=== PATIENT | male | born 1985 | race Caucasian/White ===

== ENCOUNTER 2023-05-07 09:34 | Emergency (ER) | payer OTHER, BC, SELFPAY ==
[2023-05-07 09:43] VITALS: BP 132/80; PULSE 123; RESP 16; O2SAT 97; BMI 22.5
--- NOTE | 2023-05-07 10:35 | ED.GENADULT ---
HPI - General Adult General Chief complaint: Unspecified Complaint, Adult Stated complaint: shakes/twitching or panic attack Time Seen by Provider: 05/07/23 09:52 History of Present Illness HPI narrative: This 38-year-old male comes in reporting brief jerks are spasms that have been happening over the past day or so. He also had some of these symptoms here in there over the past couple months. He did have a head injury and states that there was a subsequent surgery to straighten his nose to improve his breathing. It was since then that he has had these myoclonic jerks. He arrives with tachycardia and does seem to have lots of anxiety about his current circumstances. He is not taking any medications and denies using any street drugs or alcohol. He has not had any fevers. He does not have any history of seizures. Related Data Previous Rx's Medication Instructions Recorded escitalopram oxalate 10 mg tablet 10 mg PO DAILY #30 tabs 05/07/23 (Lexapro) lorazepam 0.5 mg tablet (Ativan) 0.5 mg PO BID PRN #10 tabs 05/07/23 methylprednisolone 4 mg tablets in See Rx Instructions PO .COMPLEX 05/07/23 a dose pack (Medrol (Sher)) #21 ea Allergies Allergy/AdvReac Type Severity Reaction Status Date / Time No Known Drug Allergies Allergy Verified 03/24/22 15:12 Review of Systems Status of ROS: Reports: 10 or more systems reviewed and unremarkable except as noted in History and below Narrative: Constitutional: No fevers, no weight gain or loss. Eyes: No discharge. No vision changes. HENT: No congestion, no sore throat, no ear pain. He reports a clicking sensation in his right TMJ. Cardiovascular: No chest pain, no palpitations. Respiratory: No shortness of breath, no wheezes, no cough. Gastrointestinal: No abdominal pain, no vomiting, no diarrhea. Genitourinary: No dysuria, no hematuria. Musculoskeletal: Normal range of motion. Skin: No rashes, no pruritis. Neurological: No dizziness, weakness, sensory change, speech change. Myoclonic jerks. Endo/Heme/Allergies: No bruising or bleeding. No polydipsia. Pysch: no suicidality, no anxiety, no insomnia. All other systems reviewed and are negative. PFSH PFSH Social History Smoking Status: Never smoker How often do you have a drink containing alcohol: never How often do you have six or more drinks on one occasion: Never AUDIT-C Alcohol total score: 0 Non-prescribed substance use: denies use Exam Narrative: Exam Narrative: Constitutional: Well-developed, well-nourished, no acute distress. HEENT: Normocephalic, atraumatic. Neck: Normal range of motion. Nontender. Supple. Heart: Regular. No murmurs. Tachycardia Intact distal pulses. Lungs: Clear to auscultation. No chest discomfort. No wheezes, rhonchi, or rales. Abdomen: Normal bowel sounds. Nontender. No rebound tenderness. Genitalia: Deferred. Back: No midline tenderness. Normal range of motion. Extremities: Normal range of motion. No injury. Skin: Intact. No rash. Warm. No erythema or pallor. Neurologic: No altered sensation. No weakness. Alert and oriented. Occasional myoclonic jerks. Psychiatric: No suicidality. No anxiety or depression. No insomnia. Nursing notes and vitals signs are reviewed. Const: Vital Signs, click to edit/add: Vital Signs - 24 hr 05/07/23 09:43 Pulse Rate [Pulse Oximeter] 123 H Respiratory Rate 16 Blood Pressure [Ri ght Upper Arm] 132/80 Pulse Oximetry 97 Oxygen Delivery Me thod Room Air Course Vital Signs Vital signs: Initial Vital Signs Pulse Rate 123 H 05/07/23 09:43 Respiratory Rate 16 05/07/23 09:43 Blood Pressure 132/80 05/07/23 09:43 Blood Pressure Mean 97 05/07/23 09:43 Pulse Oximetry 97 05/07/23 09:43 Oxygen Delivery Method Room Air 05/07/23 09:43 Vital Signs Pulse Rate 123 H 05/07/23 09:43 Respiratory Rate 16 05/07/23 09:43 Blood Pressure 132/80 05/07/23 09:43 Pulse Oximetry 97 05/07/23 09:43 Oxygen Delivery Method Room Air 05/07/23 09:43 Pulse Rate 123 H 05/07/23 09:43 Respiratory Rate 16 05/07/23 09:43 Blood Pressure 132/80 05/07/23 09:43 Pulse Oximetry 97 05/07/23 09:43 Oxygen Delivery Method Room Air 05/07/23 09:43 Medical Decision Making MDM Narrative Medical decision making narrative: This patient has lots of questions regarding his current circumstances. He does have some myoclonic jerks and has anxiety symptoms. He has had a CT scan of his head with negative results. I stated that we do not have a good test to understand myoclonic jerks or anxiety symptoms. I did discuss lab and imaging options with him today and these were declined in a process of shared decision making. The patient can benefit from some medications. I recommended a few tablets of Ativan to help him while starting Lexapro where hopefully he will have some ongoing benefit as needed to treat anxiety and depression symptoms. He also received a Medrol Dosepak in hopes that his TMJ symptoms may improve. He has been to a dentist in this regard and there was some discussion about a mouth guard but this was not started for him. I advised him to follow-up with his primary physician. Discharge Plan Discharge Clinical Impression: Anxiety, Myoclonic jerking Patient Disposition: Home, Self-Care Condition: Unchanged Additional Instructions: Take medication as prescribed. Follow up with MD for review of medications in 2-3 weeks. Return if worsening symptoms happen. Prescriptions: New escitalopram oxalate [Lexapro] 10 mg tablet 10 mg PO DAILY Qty: 30 2RF lorazepam [Ativan] 0.5 mg tablet 0.5 mg PO BID PRNQty: 10 0RF methylprednisolone [Medrol (Sher)] 4 mg tablets,dose pack See Rx Instructions .ROUTE .COMPLEX Qty: 21 0RF Rx Instructions: orally per package directions Follow Up/Referrals: Reynaldo Cochran MD [Referring] - Stand Alone Forms: [employer] Info Instructions
== END 2023-05-07 11:01 | disposition home or self-care (01) ==
LOC: ED 10:42
PROVIDERS: Emergency Provider Emergency Medicine Emergency Medical Services
DX: G25.3 Myoclonus (principal); F41.9 Anxiety disorder, unspecified
CPT/HCPCS: 99283; 99284